=== PATIENT | female | born 1995 | race Asian ===

== ENCOUNTER 2018-01-27 15:06 | Emergency (ER) | payer OTHER ==
--- NOTE | 2018-01-27 15:23 | PDOC ---
History of Present Illness - General History Source: Patient Exam Limitations: No Limitations - History of Present Illness Initial Comments: 01/27/18 15:58 The patient is a 22 year old female with no significant PMH who presents to the emergency department with intermittent chest pain for 4 months. The patient reports that she has been experiencing her chest pain for about 4 months. She reports that she gets this chest pain about 2 times a week and the pain is sharp and lasts for 1 hour. The patient reports that today. Her chest pain woke her up out of her sleep. She reports that with the onset of her chest pain the pain severity is a 10/10 and then after some time it reduces to a 6/10. The patient reports that she recently visited a Dr, about this issue and was scheduled for an Echo but she has been unable to make her appointment. She reports that her chest pain in non radiating and non secondary to physical activity. The patient denies any other complaints. She denies any shortness of breath, headache or dizziness. She denies any fever, chills, nausea, vomit, diarrhea and constipation. Allergies: NKA <Sun Hong - Last Filed: 01/27/18 15:58> - History of Present Illness Initial Comments: 01/27/18 16:54 Physical exam: Alert oriented 3 well-developed well-nourished no acute distress cooperative Afebrile, vital signs normal PERRLA, fundi benign, ENT clear Neck supple without bruit mass or nodes Lungs clear with full breath sounds throughout bilaterally. There is point tenderness over the parasternal cartilages, especially on the left, which reproduces the patient's pain, but there is no crepitus or deformity CV S1 and S2 normal without murmur rub or gallop pulses full and symmetric no JVD or edema regular Abdomen soft nontender without mass or organomegaly. Bowel sounds normal. Nondistended Neurological C2 to 12 intact. No focal sensory or motor deficits. Gait stable and unimpaired Extremities no CCE Skin clear, no rash, adequate turgor and wet mucous membranes. Impression: Chest wall pain, costochondritis. An acute coronary syndrome or lung disease would be highly unlikely. The patient has no risk factors and no family history. Plan: EKG, chest x-ray, and further medical management depending on results. <Ward Jama - Last Filed: 01/27/18 17:06> - General Chief Complaint: Chest Pain Stated Complaint: LEFT SIDE CHEST PAIN Time Seen by Provider: 01/27/18 15:23 Past History <Sun Hong - Last Filed: 01/27/18 15:58> - Past Medical History COPD: No - Suicide/Smoking/Psychosocial Hx Smoking History: Never smoked Have you smoked in the past 12 months: No Information on smoking cessation initiated: No Hx Alcohol Use: Yes (MONTHLY) Drug/Substance Use Hx: No Substance Use Type: None <Ward Jama - Last Filed: 01/27/18 17:06> - Past Medical History Allergies/Adverse Reactions: Allergies Allergy/AdvReac Type Severity Reaction Status Date / Time No Known Allergies Allergy Verified 01/27/18 15:07 Home Medications: Ambulatory Orders Diclofenac Sodium 50 mg PO BID PRN #20 tablet. 01/27/18 Review of Systems - Review of Systems Able to Perform ROS?: Yes Comments:: 01/27/18 15:59 Absent: fever, no chills, no fatigue EYES: Absent: visual changes ENT: Absent: ear pain, no sore throat CARDIOVASCULAR: (+) intermittent chest pain Absent:no palpitations RESPIRATORY: Absent: cough, no SOB GI: Absent: abdominal pain, no nausea, no vomiting, no constipation, no diarrhea GENITOURINARY: Absent: dysuria, no frequency, no hematuria MUSKULOSKELETAL: Absent: back pain, no arthralgia, no myalgia SKIN: Absent: rash NEURO: Absent: headache <Sun Hong - Last Filed: 01/27/18 15:58> *Physical Exam - Vital Signs Last Vital Signs Temp Pulse Resp BP Pulse Ox 98.4 F 77 20 117/51 100 01/27/18 15:07 01/27/18 15:07 01/27/18 15:07 01/27/18 15:07 01/27/18 15:07 <Sun Hong - Last Filed: 01/27/18 15:58> - Vital Signs Last Vital Signs Temp Pulse Resp BP Pulse Ox 98.4 F 77 20 117/51 100 01/27/18 15:07 01/27/18 15:07 01/27/18 15:07 01/27/18 15:07 01/27/18 15:07 <Ward Jama - Last Filed: 01/27/18 17:06> Medical Decision Making - Medical Decision Making 01/27/18 16:56 EKG is normal. There is a mild sinus arrhythmia. No evidence is seen of other abnormality that was alluded to by prior drug purchaser. Chest x-ray is clear. 01/27/18 17:06 Patient fully ambulatory and in no pain or other distress upon discharge to follow-up as directed <Ward Jama - Last Filed: 01/27/18 17:06> *DC/Admit/Observation/Transfer - Attestations Scribe Attestion: 01/27/18 15:59 Documentation prepared by Sun Hong, acting as medical examiner for Wadr Otero MD. <Sun Hong - Last Filed: 01/27/18 15:58> - Discharge Dispostion Admit: No <Ward Jama - Last Filed: 01/27/18 17:06> Diagnosis at time of Disposition: Costochondritis - Discharge Dispostion Disposition: HOME Condition at time of disposition: Stable - Prescriptions Prescriptions: Diclofenac Sodium 50 mg PO BID PRN #20 tablet.dr FERREIRA Reason: Pain - Patient Instructions Printed Discharge Instructions: DI for Costochondritis Additional Instructions: Ice massage. Medication as directed. Avoid strenuous activity with the upper body. See primary physician if no improvement one week. Return to ER if symptoms worsen or additional symptoms develop.
[2018-01-27 15:29] VITALS: BP 117/51; PULSE 77; TEMP 98.4; BMI 33.8
--- NOTE | 2018-01-28 12:59 | EKG ---
Test Reason : Blood Pressure : / mmHG Vent. Rate : 072 BPM Atrial Rate : 072 BPM P-R Int : 142 ms QRS Dur : 092 ms QT Int : 362 ms P-R-T Axes : 033 086 046 degrees QTc Int : 396 ms NORMAL SINUS RHYTHM WITH SINUS ARRHYTHMIA NORMAL ECG NO PREVIOUS ECGS AVAILABLE Confirmed by DONALD GARRISON, KENYA ([id number]) on 01/28/2018 12:59:33 PM Referred By: MD HUSSEIN Confirmed By:KENYA BENNETT MD
== END 2018-01-27 17:15 | disposition home or self-care (01) ==
LOC: FER 15:06
DX: M94.0 Chondrocostal junction syndrome [Tietze] (principal)
CPT/HCPCS: 71045-TC-FY; 84703; 93005; 99282-25